=== PATIENT | female | born 1980 | race Two or more races ===

== ENCOUNTER 2016-10-22 18:21 | Emergency (ER) | payer MEDICAID ==
[2016-10-22 18:33] VITALS: RESP 16
[2016-10-22] MEDS ORDERED: NS 500 ML IV ONE (18:41)
--- NOTE | 2016-10-22 18:54 | EDPHY ---
General - Diagnostics EKG: I reviewed patient's EKG. See Estech system for interpretation <David Gómez - Last Filed: 10/22/16 19:26> - History Smoking Status: Former smoker <Dameon Rawls - Last Filed: 10/22/16 20:49> Narrative: CHIEF COMPLAINT: Multiple complaints HISTORY OF PRESENT ILLNESS: Patient complains of thoracic back pain, shortness of breath, sore throat, nausea, malaise, upper extremity paresthesia. 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 She says she was picking up and heading back to the residential when she felt the symptoms start. The back pain was the 1st start. She had no chest pain with this and has no chest pain at this time. The symptoms have been constant. It is mild to moderate severity. Pain from the back does not radiate outward or to the chest. She is not certain if the tingling in the arms is associated with not as it has been present for nearly 2 weeks. She has no weakness of the upper extremities. She has no incontinence of bowel or bladder. She has no retention of bowel or bladder. She has no lower extremity paresthesia, anesthesia or weakness. No trauma to the back or chest. Does have a history of cervical radiculopathy in the past. She also reports degenerative disc disease. She also reports a previous traumatic brain injury. No other associated complaints modifying factors REVIEW OF SYSTEMS: Ten systems reviewed and are negative unless otherwise noted in the HPI PERTINENT MEDICAL HISTORY: Superficial thrombus of the right lower extremity remotely EXAMINATION General Appearance: Alert, no distress Head: normocephalic, atraumatic Eyes: Pupils equal and round, no conjunctival pallor or injection. EOMs intact ENT, Mouth: Mucous membranes moist. Uvula midline. No erythema or edema. Neck: Normal inspection, supple, non-tender. No meningismus. Painless range of motion all planes. Respiratory: Lungs are clear to auscultation. No wheezing, rhonchi or crackles. Cardiovascular: Regular rate and rhythm. No murmur. Pulses intact distally. Gastrointestinal: Abdomen is soft and nontender. No tympany rigidity. No CVA tenderness Back: Tenderness of the thoracic back bilaterally. No midline tenderness. No crepitus, step-off or deformity. There is no tenderness of the midline cervical or lumbar spine. Neurological: A&O, nonfocal, normal gait. Sensory intact symmetrically in the arms and legs. Symmetric strength of the wrists and interossei. Strength is 5/ 5 in all 4 limbs. No pronator drift. No dysmetria. Patellar reflexes are symmetric. Skin: Warm and dry, no rash. No petechiae or purpura Extremities: Nontender, no pedal edema Psychiatric: Mood and affect normal DIFFERENTIAL DIAGNOSES: Including but not limited to anxiety, pneumonia ACS, PE, thoracic back strain, degenerative disc disease, radiculopathy MDM: 6:40 p.m. Multiple complaints including back pain, arm tingling, nausea, shortness of breath. She has no actual complaint chest pain. No lower extremity pain, erythema or edema. She does have some shortness of breath that is unpredictable to her. She does have a history of a superficial thrombus in the right lower extremity in the past. No history of coronary artery disease, PE or DVT. Vital signs are stable. I suspect there is more of a component of anxiety than others. I will obtain cardiac labs, EKG and a CT angio to rule out PE although clinical suspicion is very low. 7:[address] scan is unremarkable for PE. Laboratory studies were within normal limits. She is feeling better after IV fluid resuscitation. Discharged home with instructions to follow up with primary care physician. Return to the ER for worsening symptoms or any onset of any chest pain. She is comfortable with this plan. I have answered all her questions. She is discharged home in stable condition. EKG Interpreted by : Dr. Gómez Carlton is 50 beats per minute. Normal sinus rhythm. No ST depression or elevation. T-waves inverted only in AVR and V1. No acute ischemia. SUPERVISION: This patient was independently evaluated without direct examination by the attending physician. Case was discussed with attending physician. Case discussed with Dr. Gómez ([facility]) - Diagnostics EKG Interpretation: 12-lead EKG interpreted by me; official reading is in trace master. My interpretation is sinus rhythm rate 58 with normal intervals and no acute ischemic changes. (David Gómez) - Objective Vital Signs: Initial Vital Signs Temperature (C) 98.8 F 10/22/16 18:23 Heart Rate 75 10/22/16 18:23 Respiratory Rate 16 10/22/16 18:23 Blood Pressure 139/77 H 10/22/16 18:23 O2 Sat (%) 97 10/22/16 18:23 O2 Delivery Mode Room Air Allergies/Adverse Reactions: latex Allergy (Intermediate, Verified 10/22/16 18:26) Rash Penicillins Allergy (Intermediate, Verified 10/22/16 18:26) Rash Home Medications: Medication Instructions Recorded Gabapentin 10/22/16 Laboratory Results: Laboratory Results 10/22/16 18:55 10/22/16 18:55 10/22/16 10/22/16 10/22/16 18:55 18:55 18:55 WBC 8.30 10^3/uL 10^3/uL (3.80-9.50) RBC 5.00 10^6/uL 10^6/uL (4.18-5.33) Hgb 15.0 g/dL g/dL (12.6-16.3) Hct 42.3 % % (38.0-47.0) MCV 84.6 fL fL (81.5-99.8) MCH 30.0 pg pg (27.9-34.1) MCHC 35.5 g/dL g/dL (32.4-36.7) RDW 13.2 % % (11.5-15.2) Plt Count 187 10^3/uL 10^3/uL (150-400) MPV 10.6 fL fL (8.7-11.7) Neut % (Auto) 68.2 % % (39.3-74.2) Lymph % (Auto) 23.3 % % (15.0-45.0) Kendall % (Auto) 6.5 % % (4.5-13.0) Eos % (Auto) 1.4 % % (0.6-7.6) Baso % (Auto) 0.4 % % (0.3-1.7) Nucleat RBC Rel Count 0.0 % % (0.0-0.2) Absolute Neuts (auto) 5.66 10^3/uL 10^3/uL (1.70-6.50) Absolute Lymphs (auto) 1.93 10^3/uL 10^3/uL (1.00-3.00) Absolute Monos (auto) 0.54 10^3/uL 10^3/uL (0.30-0.80) Absolute Eos (auto) 0.12 10^3/uL 10^3/uL (0.03-0.40) Absolute Basos (auto) 0.03 10^3/uL 10^3/uL (0.02-0.10) Absolute Nucleated RBC 0.00 10^3/uL 10^3/uL (0-0.01) Immature Gran % 0.2 % % (0.0-1.1) Immature Gran # 0.02 10^3/uL 10^3/uL (0.00-0.10) Sodium 138 mEq/L mEq/L (134-144) Potassium 4.0 mEq/L mEq/L (3.5-5.2) Chloride 107 mEq/L mEq/L (97-110) Carbon Dioxide 20 mEq/l L mEq/l (22-31) Anion Gap 11 mEq/L mEq/L (8-16) BUN 14 mg/dL mg/dL (7-23) Creatinine 0.7 mg/dL mg/dL (0.6-1.0) Estimated GFR > 60 Glucose 87 mg/dL mg/dL (70-100) Calcium 9.1 mg/dL mg/dL (8.5-10.4) Troponin I < 0.012 ng/mL ng/mL (0-0.034) Lipase 71.0 IU/L IU/L (23-300) Beta HCG, Qual NEGATIVE Medications Given: Discontinued Medications Sodium Chloride (Ns) 500 mls @ 0 mls/hr IV ONCE ONE PRN Reason: As Directed Stop: 10/22/16 18:42 Last Admin: 10/22/16 19:05 Dose: 500 mls Departure <David Gómez - Last Filed: 10/22/16 19:26> <Dameon Rawls - Last Filed: 10/22/16 20:49> - Departure Disposition: Home, Routine, Self-Care Clinical Impression: Cervical radicular pain Back pain Qualifiers: Back pain location: thoracic back pain Chronicity: acute Back pain laterality: unspecified Qualified Code(s): M54.6 - Pain in thoracic spine Condition: Good Instructions: Cervical Radiculopathy (ED), Back Pain (ED) Additional Instructions: Follow-up with primary care physician for further care. Return to the ER for saddle anesthesia, weakness of the legs or arms. Referrals: LUIS DELATORRE [Primary Care Provider] - As per Instructions
[2016-10-22 19:00] LABS: % IMMATURE GRANULYOCYTES 0.2 % (0.0-1.1); ABSOLUTE IMMATURE GRANULOCYTES 0.02 10^3/uL (0.00-0.10); ADD DIFF? NO; ADD MORPH? NO; ADD SCAN? NO; ATYPICAL LYMPHOCYTE FLAG 50 (0-99); FRAGMENT RBC FLAG 0 (0-99); HEMATOCRIT 42.3 % (38.0-47.0); LEFT SHIFT FLG 0 (0-99); LIPEMIA HEMOLYSIS FLAG 90 (0-99); MEAN CELL HEMOGLOBIN CONCENTR. 35.5 g/dL (32.4-36.7); MEAN CELL VOLUME 84.6 fL (81.5-99.8); MEAN PLATELET VOLUME 10.6 fL (8.7-11.7); PLATELET CLUMPS FLAG 0 (0-99); PLATELET COUNT 187 10^3/uL (150-400); RED CELL DISTRIBUTION WIDTH 13.2 % (11.5-15.2)
--- NOTE | 2016-10-22 19:04 | CPEKG ---
Heart Rate: 58 RR Interval: 1034 P-R Interval: 152 QRSD Interval: 86 QT Interval: 428 QTC Interval: 421 P Moroni: 26 QRS Moroni: 27 T Wave Moroni: 15 EKG Severity - NORMAL ECG - EKG Impression: SINUS RHYTHM Electronically Signed By: David Gómez 22-Oct-2016 19:27:34
[2016-10-22 19:18] LABS: ANION GAP 11 mEq/L (8-16); CALCIUM 9.1 mg/dL (8.5-10.4); CARBON DIOXIDE 20 mEq/l (22-31); CHLORIDE 107 mEq/L (97-110); CREATININE 0.7 mg/dL (0.6-1.0); GLOMERULAR FILTRATION RATE > 60; GLUCOSE 87 mg/dL (70-100); SODIUM 138 mEq/L (134-144)
[2016-10-22] MEDS ORDERED: IOPAMIDOL (ISOVUE 370) 100 ML BTL IV ONE (19:24)
[2016-10-22 19:31] LABS: TROPONIN I < 0.012 ng/mL (0-0.034)
[2016-10-22 19:37] VITALS: TEMP 98.1
[2016-10-22 20:27] VITALS: BP 120/98; PULSE 66; O2SAT 98
== END 2016-10-22 20:36 | disposition home or self-care (01) ==
DX: M54.6 Pain in thoracic spine (principal); M54.12 Radiculopathy, cervical region; Z87.891 Personal history of nicotine dependence; Z91.040 Latex allergy status
CPT/HCPCS: Q9967

== ENCOUNTER 2017-06-20 19:20 | Emergency (ER) | payer MEDICAID ==
[2017-06-20 19:40] VITALS: RESP 16; O2SAT 97
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
[2017-06-20 20:38] VITALS: BP 119/65; PULSE 77; TEMP 98.1
== END 2017-06-20 20:40 | disposition home or self-care (01) ==
DX: F41.9 Anxiety disorder, unspecified (principal); Z87.891 Personal history of nicotine dependence; Z91.040 Latex allergy status

== ENCOUNTER 2018-01-23 18:20 | Emergency (ER) | payer OTHER, MEDICAID ==
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
[2018-01-23] MEDS ORDERED: IBUPROFEN 800 MG TAB PO ONE (18:41)
[2018-01-23 19:20] VITALS: BP 139/88
== END 2018-01-23 19:26 | disposition home or self-care (01) ==
LOC: EDUNIT#
DX: S49.92XA Unspecified injury of left shoulder and upper arm, initial encounter (principal); V49.40XA Driver injured in collision with unspecified motor vehicles in traffic accident, initial encounter; Y92.410 Unspecified street and highway as the place of occurrence of the external cause; Y99.8 Other external cause status; Y93.89 Activity, other specified; Z87.891 Personal history of nicotine dependence; Z91.040 Latex allergy status

== ENCOUNTER 2018-04-11 11:22 | Emergency (ER) | payer MEDICAID ==
[2018-04-11] MEDS ORDERED: NS 1,000 ML IV ONE (12:00)
[2018-04-11 12:23] LABS: PLATELET COUNT 197 10^3/uL (150-400)
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
[2018-04-11 12:57] VITALS: BP 124/95
--- NOTE | 2018-04-11 15:00 | CPEKG ---
Test Reason : OPEN Blood Pressure : / mmHG Vent. Rate : 069 BPM Atrial Rate : 065 BPM P-R Int : 142 ms QRS Dur : 061 ms QT Int : 374 ms P-R-T Axes : 072 072 057 degrees QTc Int : 401 ms Sinus rhythm Confirmed by Ezekiel Marquez ([id number]) on 04/11/2018 2:59:43 PM Referred By: Confirmed By:Ezekiel Marquez
== END 2018-04-11 12:59 | disposition home or self-care (01) ==
DX: R00.2 Palpitations (principal); F41.9 Anxiety disorder, unspecified; M79.672 Pain in left foot; E86.9 Volume depletion, unspecified; Z87.891 Personal history of nicotine dependence
CPT/HCPCS: 84484-PO

== ENCOUNTER 2018-05-15 21:22 | Emergency (ER) | payer MEDICAID ==
[2018-05-15] MEDS ORDERED: NS 1,000 ML IV ONE ×2 (22:10→23:09)
[2018-05-15] MEDS ORDERED: KETOROLAC 15 MG/1 ML SDV IVP ONE (22:10)
[2018-05-15] MEDS ORDERED: PROMETHAZINE HCL 25 MG/ML INJ IVP ONE (22:10)
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
[2018-05-16 00:36] VITALS: BP 109/79
== END 2018-05-16 00:44 | disposition home or self-care (01) ==
LOC: EDUNIT#
DX: R51 Headache (principal); E86.0 Dehydration
CPT/HCPCS: 96374; J1200; J1885; J2550

== ENCOUNTER 2018-05-16 14:12 | Emergency (ER) | payer MEDICAID ==
[2018-05-16] MEDS ORDERED: METOCLOPRAMIDE 10 MG/2 ML VIAL IVP ONE (14:42)
[2018-05-16] MEDS ORDERED: KETOROLAC 30 MG/1 ML SDV IVP ONE (14:42)
[2018-05-16] MEDS ORDERED: DEXAMETHASONE 10 MG/ML VIAL IVP ONE (14:42)
[2018-05-16] MEDS ORDERED: NS 1,000 ML IV ONE (14:42)
--- NOTE | 2018-05-16 14:46 | EDPHY ---
H & P Stated Complaint: Continued headache. Here in the ED- 05/15/18 for same symptoms. Time Seen by Provider: 05/16/18 14:36 HPI/ROS: CHIEF COMPLAINT: Headache HISTORY OF PRESENT ILLNESS: The patient is a 37-year-old homeless female with a history of traumatic brain injury and migraines who comes to the emergency depart complaining of a headache. She was seen here yesterday for the same, treated and felt better and went home but states her headache has returned today. No fevers. No recent trauma. This is not the worst headache of her life. It was not thunderclap in onset. No focal weakness or deficits. Severity: Moderate Modifying factors: None REVIEW OF SYSTEMS: Constitutional: denies: chills, fever, recent illness, recent injury EENTM: denies: blurred vision, double vision, nose congestion Respiratory: denies: cough, shortness of breath Cardiac: denies: chest pain, irregular heart rate, lightheadedness, palpitations Gastrointestinal/Abdominal: denies: abdominal pain, diarrhea, nausea, vomiting, blood streaked stools Genitourinary: denies: dysuria, frequency, hematuria, pain Musculoskeletal: denies: joint pain, muscle pain Skin: denies: lesions, rash, jaundice, bruising Neurological: See HPI denies: numbness, paresthesia, tingling, dizziness, weakness Hematologic/Lymphatic: denies: blood clots, easy bleeding, easy bruising Immunologic/allergic: denies: HIV/AIDS, transplant 10 systems reviewed and negative except as noted EXAM: GENERAL: Well-appearing, well-nourished and in no acute distress. HEAD: Atraumatic, normocephalic. EYES: Pupils equal round and reactive to light, extraocular movements intact, sclera anicteric, conjunctiva are normal. ENT: TMs normal, nares patent, oropharynx clear without exudates. Moist mucous membranes. NECK: Normal range of motion, supple without lymphadenopathy or JVD. LUNGS: Breath sounds clear to auscultation bilaterally and equal. No wheezes rales or rhonchi. HEART: Regular rate and rhythm without murmurs, rubs or gallops. ABDOMEN: Soft, nontender, normoactive bowel sounds. No guarding, no rebound. No masses appreciated. BACK: No CVA tenderness, no spinal tenderness, step-offs or deformities EXTREMITIES: Normal range of motion, no pitting or edema. No clubbing or cyanosis. NEUROLOGICAL: Cranial nerves II through XII grossly intact. Normal speech, normal gait. 5/5 strength, normal movement in all extremities, normal sensation , normal reflexes PSYCH: Normal mood, normal affect. SKIN: Warm, dry, normal turgor, no visible rashes or lesions. Source: Patient Exam Limitations: No limitations - Personal History Current Tetanus Diphtheria and Acellular Pertussis (TDAP): No - Medical/Surgical History Hx Asthma: No Hx Chronic Respiratory Disease: No Hx Diabetes: No Hx Cardiac Disease: No Hx Renal Disease: No Hx Cirrhosis: No Hx Alcoholism: No Hx HIV/AIDS: No Hx Splenectomy or Spleen Trauma: No Other PMH: concussion-November 2015, , appy, tonsillectomy, nerve pain. - Family History Significant Family History: No pertinent family hx - Social History Smoking Status: Former smoker Alcohol Use: Sober Drug Use: None Constitutional: Initial Vital Signs Temperature (C) 36.7 C 05/16/18 14:21 Heart Rate 83 05/16/18 14:21 Respiratory Rate 16 05/16/18 14:21 Blood Pressure 133/78 H 05/16/18 14:21 O2 Sat (%) 96 05/16/18 14:21 O2 Delivery Mode Room Air Allergies/Adverse Reactions: latex Allergy (Intermediate, Verified 04/11/18 11:24) Rash Penicillins Allergy (Intermediate, Verified 04/11/18 11:24) Rash steroids Allergy (Uncoded 04/11/18 11:24) Home Medications: Medication Instructions Recorded Adderall 01/23/18 Ibuprofen [Motrin (*)] 600 mg PO Q6 #15 tab 01/23/18 hydrOXYzine HCL [hydrOXYzine HCL 25 mg PO Q6 #15 tab 04/11/18 (RX)] Metoclopramide [Reglan 10 mg tab 10 mg PO BID PRN #10 tab 05/16/18 (RX)] Medical Decision Making ED Course/Re-evaluation: 5:00 p.m. patient is feeling much better. Her headache is resolved. She is asking for lactated Ringer's because she thinks this will help. I will give her a prescription for Compazine to take at home. I will also give her neurology follow-up. She is happy with this plan and declines further workup. Differential Diagnosis: Partial list of the Differential diagnosis considered include but were not limited to; migraine headache, chronic headaches, history of traumatic brain injury and although unlikely based on the history and physical exam, I also considered seizure, infection, hemorrhage, tumor, CVA. I discussed these differential diagnoses and the plan with the patient as well as the usual and expected course. The patient understands that the diagnosis is provisional and that in medicine we are not always correct and that further workup is often warranted. Usual and customary warnings were given. All of the patient's questions were answered. The patient was instructed to return to the emergency department should the symptoms at all worsen or return, otherwise to followup with the physician as we discussed. - Data Points Medications Given: Discontinued Medications Dexamethasone (Decadron Injection) 10 mg IVP EDNOW ONE Stop: 05/16/18 14:43 Last Admin: 05/16/18 15:05 Dose: Not Given Diphenhydramine HCl (Benadryl Injection) 25 mg IVP EDNOW ONE Stop: 05/16/18 14:43 Last Admin: 05/16/18 15:05 Dose: 25 mg Sodium Chloride (Ns) 1,000 mls @ 0 mls/hr IV ONCE ONE; Wide Open PRN Reason: Protocol Stop: 05/16/18 14:43 Last Admin: 05/16/18 15:05 Dose: 1,000 mls Lactated Ringer's (Lr) 1,000 mls @ 0 mls/hr IV EDNOW ONE; Wide Open PRN Reason: Protocol Stop: 05/16/18 17:07 Last Admin: 05/16/18 17:10 Dose: 1,000 mls Ketorolac Tromethamine (Toradol) 15 mg IVP EDNOW ONE Stop: 05/16/18 14:43 Last Admin: 05/16/18 15:03 Dose: 15 mg Metoclopramide HCl (Reglan Injection) 10 mg IVP EDNOW ONE Stop: 05/16/18 14:43 Last Admin: 05/16/18 15:05 Dose: 10 mg Departure - Departure Disposition: Home, Routine, Self-Care Clinical Impression: Stress at home Headache Qualifiers: Headache type: unspecified Headache chronicity pattern: acute headache Intractability: not intractable Qualified Code(s): R51 - Headache Condition: Fair Instructions: Stress (ED), Acute Headache (ED) Referrals: JANNIE PENA [Primary Care Provider] - As per Instructions Ulises Gasca DO [Doctor of Osteopathy] - 2-3 days, if not improved Prescriptions: Metoclopramide [Reglan 10 mg tab (RX)] 10 mg PO BID PRN #10 tab PRN Reason: Headache
[2018-05-16] MEDS ORDERED: DEXAMETHASONE 4 MG/ML VIAL ONE (14:53)
[2018-05-16] MEDS ORDERED: LR 1,000 ML IV ONE (17:06)
[2018-05-16 18:26] VITALS: BP 136/85
== END 2018-05-16 18:24 | disposition home or self-care (01) ==
DX: R51 Headache (principal); Z59.0 Homelessness; E86.0 Dehydration
CPT/HCPCS: 96374; J1100; J1200; J1885; J2765

== ENCOUNTER 2018-05-21 18:15 | Emergency (ER) | payer MEDICAID ==
[2018-05-21 18:24] VITALS: BP 114/86
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
--- NOTE | 2018-05-21 18:51 | CPEKG ---
Test Reason : OPEN Blood Pressure : / mmHG Vent. Rate : 071 BPM Atrial Rate : 071 BPM P-R Int : 138 ms QRS Dur : 066 ms QT Int : 395 ms P-R-T Axes : 048 040 026 degrees QTc Int : 430 ms Sinus rhythm Probable left atrial enlargement Confirmed by Ulises Castillo ([id number]) on 05/21/2018 6:50:05 PM Referred By: Confirmed By:Ulises Castillo
== END 2018-05-21 19:10 | disposition home or self-care (01) ==
DX: F43.9 Reaction to severe stress, unspecified (principal)

== ENCOUNTER 2018-07-19 14:56 | Emergency (ER) | payer MEDICAID ==
--- NOTE | 2018-07-19 15:29 | EDPHY ---
H & P Time Seen by Provider: 07/19/18 15:14 HPI/ROS: HPI Cough. Palpitations. 38-year-old female by foot. This patient has a vague history of a brain injury. She reports that she has been on Adderall for about the last year. She states that over the last several days she has had nasal congestion as well as a dry nonproductive cough. She presents to the emergency department today because of heart palpitations and continued cough. She does not have any significant chest pain associated with these palpitations. She is not short of breath. She has not had a fever. She thinks that she has had the heart palpitations on and off for some time. She is concerned that she has a pneumonia with her cough. ROS: Constitutional: No fever, no chills. No weakness. Eyes: No discharge. No changes in vision. ENT: No sore throat. As above. Respiratory: As above. No shortness of breath. Cardiac: No chest pain. As above. Gastrointestinal: No abdominal pain, no vomiting, no diarrhea. Genitourinary: No hematuria. No dysuria or increased frequency with urination. Musculoskeletal: No back pain. No neck pain. No myalgias or arthralgias. Skin: No rashes. Neurological: No headache. No focal weakness or altered sensation. Past medical history: Concussion, November of 2015, , appendectomy, tonsillectomy, chronic nerve pain. Social history: Here by herself. Denies smoking. Denies alcohol. Physical Exam: General Appearance: Alert, pleasant, no distress. She appears comfortable. This patient is responding to questions appropriately and in full sentences. This patient appears well-hydrated and well-nourished. Eyes: Pupils equal and round no pallor or injection. No lid edema, erythema or injection. Respiratory: There are no retractions, lungs are clear to auscultation with good air movement bilaterally. Cardiovascular: Regular rate and rhythm. No murmur. Neurological: Motor sensory function is grossly intact. Cranial nerves are normal. Gait is normal. Skin: Warm and dry, no rashes. Musculoskeletal: Neck is supple and nontender. No soft tissue pain or swelling on palpation of the neck. No cervical, submandibular, submental lymphadenopathy. Extremities are symmetrical. All joints range without pain or impingement. Psychiatric: No agitation. No depression. Database: EKG: EKG time is 3:28 p.m.; EKG shows a narrow complex normal sinus rhythm with a ventricular rate of 70. The AR, QRS, QT intervals are within normal limits. There are no ST-T wave changes indicative of ischemic or injury pattern. No evidence of right heart strain. No evidence of WPW, right Brugada syndrome, hypertrophic cardiomyopathy. Interpreted by me. Imaging: Chest x-ray PA and lateral; the cardiac mediastinal silhouette is unremarkable. No evidence of infiltrate or pneumothorax. Mild bronchitis. No other acute cardiopulmonary disease process noted. Interpreted by me. Procedures: Emergency department course: Triage vital signs reviewed and are normal. She is afebrile. This patient looks well. EKG to be obtained as well as chest x-ray. 3:50 p.m., the patient was re-evaluated. I discussed results of her EKG and chest x-ray. No red flags. I feel her cough is secondary to a viral bronchitis. I discussed possible PVCs as a source of her palpitations. We have had her on a monitor in the emergency department and have not seen any arrhythmia or other abnormality. She feels comfortable going home and I feel she is safe for discharge. I will have her follow up with her primary care physician after [place] for re-evaluation. She has been instructed to avoid caffeinated beverages or other stimulants. Return to emergency department precautions reviewed thoroughly. All of her questions were answered. She was discharged from the emergency department in good condition. Differential Diagnosis: The differential diagnosis on this patient includes but is not limited to viral upper respiratory infection, viral bronchitis, PVCs. Arrhythmia, pneumothorax, pneumonia, acute coronary syndrome unlikely. This represents a partial list of diagnoses considered. These considerations are based on history, physical exam , past history, reassessment and diagnostic testing. Smoking Status: Former smoker Constitutional: Initial Vital Signs Temperature (C) 36.9 C 07/19/18 15:02 Heart Rate 96 07/19/18 15:02 Respiratory Rate 16 07/19/18 15:02 Blood Pressure 126/86 H 07/19/18 15:02 O2 Sat (%) 99 07/19/18 15:02 O2 Delivery Mode Room Air Allergies/Adverse Reactions: latex Allergy (Intermediate, Verified 07/19/18 15:02) Rash Penicillins Allergy (Intermediate, Verified 07/19/18 15:02) Rash dexamethasone Allergy (Unknown, Verified 07/19/18 15:02) steroids Allergy (Uncoded 07/19/18 15:02) Home Medications: Medication Instructions Recorded Adderall 01/23/18 Departure - Departure Disposition: Home, Routine, Self-Care Clinical Impression: Bronchitis, Palpitations Condition: Good Instructions: Heart Palpitations (ED), Acute Bronchitis (ED) Additional Instructions: Read and follow provided instructions. Follow-up with your primary care physician after the holidays for re-evaluation. Avoid caffeinated beverages and other stimulants. Get plenty of rest. Keep well hydrated. Return to the emergency department for worsening symptoms or other serious concerns. Referrals: NONE *PRIMARY CARE P,. [Primary Care Provider] - As per Instructions
[2018-07-19 16:17] VITALS: BP 123/87
--- NOTE | 2018-07-20 21:29 | CPEKG ---
Test Reason : OPEN Blood Pressure : / mmHG Vent. Rate : 070 BPM Atrial Rate : 074 BPM P-R Int : 130 ms QRS Dur : 073 ms QT Int : 367 ms P-R-T Axes : 027 028 002 degrees QTc Int : 396 ms Sinus rhythm Confirmed by Aiyana Rodriguez ([id number]) on 07/20/2018 9:28:54 PM Referred By: Confirmed By:Aiyana Rodriguez
== END 2018-07-19 16:16 | disposition home or self-care (01) ==
DX: J40 Bronchitis, not specified as acute or chronic (principal); R00.2 Palpitations; M79.2 Neuralgia and neuritis, unspecified; G89.29 Other chronic pain; Z88.0 Allergy status to penicillin; Z87.820 Personal history of traumatic brain injury

== ENCOUNTER → 2018-08-12 | Outpatient (CLI) | payer OTHER, MEDICAID | LOC: FIMAGING 12:30 | PROVIDERS: ATTEND Family Medicine | DX: N64.4 Mastodynia (principal); N64.52 Nipple discharge; N60.41 Mammary duct ectasia of right breast ==